=== PATIENT | male | born 1955 | race Caucasian/White ===

== ENCOUNTER 2017-03-16 20:22 | Inpatient (IN) | payer MEDICARE ==
[~2017-03-16] VITALS: Ht 170.2 cm; Wt 92.4 kg
[2017-03-16] VITALS (60 sets, daily range): BP systolic 117; BP diastolic 71; PULSE 106; TEMP 98.4; O2SAT 89–100
[~2017-03-16 20:22] MED LIST: CARBIDOPA & LEV1 TA1 PO; CEPHALEXIN500 M1 PO; COUMADIN 3MG3 MG/TAB PO; DESYREL 50MG50 MG PO; EC NAPROSYN500 MG PO; ESTRADIOL0.05 MG/24 TD; LIPITOR 40MG TA40 MG PO; LIPITOR20 MG PO; MAXITROL OPHTH D5 ML OP; NORCO 325 MG-51 TAB PO; PRAVASTATIN20 MG PO; SINEMET CR1 UDTAB.S1 PO; TOPROL XL 50MG50 MG PO; TOPROL XL50 MG PO; TRAZODO50 MG PO; ULTRAM 50MG TAB50 MG PO; VOLTAREN25 MG PO; ZYRTEC10 M1 PO
[2017-03-16] MEDS ORDERED: PRAVACHOL 40MG40 MG PO (20:38)
[2017-03-16 21:12] LABS: BASO % 0.5 % (0.0-2.0); EOS % 0.5 % (0-4.0); GRAN # 4.5 (1.4-6.5); GRAN % 71.6 % (42.2-75.2); HEMATOCRIT 38.5 % (42.0-52.0); HEMOGLOBIN 12.5 g/dl (13.5-18.0); LYMPH # 1.3 (1.2-3.4); LYMPH % 20.4 % (20.0-51.0); MEAN CELL VOLUME 93 fl (80.0-100.0); MEAN CORPUSCULAR HEMOGLOBIN 30 pg (27.0-31.0); MEAN CORPUSCULAR HGB CONC 33 g/dl (33.0-37.0); MEAN PLATELET VOLUME 10.1 fl (7.4-10.4); MONO # 0.4 (0.1-0.6); MONO % 6.7 % (1.7-9.3); PLATELET COUNT 221 K/mm3 (130-400); RED BLOOD COUNT 4.15 M/mm3 (4.20-5.60); REDCELL DISTRIBUTION WIDTH-CV 13.7 % (11.5-14.5); WHITE BLOOD COUNT 6.2 K/mm3 (4.8-10.8)
[2017-03-16] MEDS ORDERED: RITALIN10 MG PO (21:16)
[2017-03-16 21:21] LABS: PARTIAL THROMBOPLASTIN TIME 40.9 SECONDS (26.0-37.0)
[2017-03-16 21:22] LABS: ADJUSTED CALCIUM 9.2 mg/dL (8.4-10.2); ALBUMIN 3.7 gm/dL (3.5-5.0); BILIRUBIN,TOTAL 0.7 mg/dL (0.0-1.0); CREATININE, serum 1.07 mg/dL (0.66-1.25); POTASSIUM 4.6 mmol/L (3.4-5.0); TOTAL PROTEIN 6.9 gm/dL (6.4-8.2)
[2017-03-16 21:28] LABS: INR 4.3 (0.8-3.0)
[2017-03-16 21:33] LABS: PROTHROMBIN TIME 50.2 SECONDS (9.7-12.8)
[2017-03-17] VITALS (329 sets, daily range): BP systolic 94–142; BP diastolic 61–95; PULSE 90–122; TEMP 97–98.9; O2SAT 34–100
[2017-03-17] MEDS ORDERED: PRIL40 PO (02:31)
[2017-03-17 06:48] LABS: BASO % 0.5 % (0.0-2.0); EOS % 0.2 % (0-4.0); GRAN # 3.6 (1.4-6.5); GRAN % 66.4 % (42.2-75.2); LYMPH # 1.2 (1.2-3.4); LYMPH % 22.1 % (20.0-51.0); MEAN CELL VOLUME 94 fl (80.0-100.0); MEAN CORPUSCULAR HGB CONC 32 g/dl (33.0-37.0); MEAN PLATELET VOLUME 10.8 fl (7.4-10.4); MONO # 0.6 (0.1-0.6); MONO % 10.6 % (1.7-9.3); PLATELET COUNT 171 K/mm3 (130-400); REDCELL DISTRIBUTION WIDTH-CV 13.9 % (11.5-14.5); WHITE BLOOD COUNT 5.5 K/mm3 (4.8-10.8)
[2017-03-17 06:55] LABS: CALCIUM 8.5 mg/dL (8.4-10.2); CREATININE, serum 0.9 mg/dL (0.66-1.25); POTASSIUM 4.5 mmol/L (3.4-5.0)
[2017-03-17 07:00] LABS: HEMATOCRIT 27.2 % (42.0-52.0); HEMOGLOBIN 8.7 g/dl (13.5-18.0); MEAN CORPUSCULAR HEMOGLOBIN 30 pg (27.0-31.0)
[2017-03-17 07:51] LABS: INR 2.5 (0.8-3.0); PROTHROMBIN TIME 28.2 SECONDS (9.7-12.8)
[2017-03-17 11:47] LABS: HEMATOCRIT 21.3 % (42.0-52.0)
[2017-03-17 11:52] LABS: INR 1.8 (0.8-3.0); PROTHROMBIN TIME 20.4 SECONDS (9.7-12.8)
[2017-03-17 21:29] LABS: PH 5 (5-8); SQUAMOUS EPITHELIAL None Seen /hpf; URINE APPEARANCE Clear; URINE BACTERIA None Seen /hpf; URINE BILIRUBIN Negative (NEGATIVE); URINE BLOOD Negative (NEGATIVE); URINE COLOR Straw; URINE GLUCOSE Negative (NEGATIVE); URINE KETONE Trace (NEGATIVE); URINE RBC 0-2 /hpf; URINE UROBILINOGEN Negative (NEGATIVE); URINE WBC 0-2 /hpf
[2017-03-18] VITALS (8 sets, daily range): BP systolic 90–122; BP diastolic 55–77; PULSE 74–90; TEMP 97.8–98.9
[2017-03-18 01:47] LABS: HEMATOCRIT 25.6 % (42.0-52.0); HEMOGLOBIN 8.4 g/dl (13.5-18.0)
[2017-03-18 05:14] LABS: BASO % 0.8 % (0.0-2.0); EOS # 0.1 (0.0-0.7); EOS % 1.1 % (0-4.0); GRAN # 3.4 (1.4-6.5); GRAN % 64.5 % (42.2-75.2); LYMPH # 1.3 (1.2-3.4); MEAN CELL VOLUME 90 fl (80.0-100.0); MEAN CORPUSCULAR HGB CONC 34 g/dl (33.0-37.0); MEAN PLATELET VOLUME 10.3 fl (7.4-10.4); MONO # 0.5 (0.1-0.6); PLATELET COUNT 134 K/mm3 (130-400); RED BLOOD COUNT 2.65 M/mm3 (4.20-5.60); REDCELL DISTRIBUTION WIDTH-CV 14.8 % (11.5-14.5); WHITE BLOOD COUNT 5.3 K/mm3 (4.8-10.8)
[2017-03-18 05:17] LABS: HEMATOCRIT 23.9 % (42.0-52.0); MEAN CORPUSCULAR HEMOGLOBIN 30 pg (27.0-31.0)
[2017-03-18 05:32] LABS: INR 1.8 (0.8-3.0); PROTHROMBIN TIME 20.8 SECONDS (9.7-12.8)
[2017-03-19 02:45] VITALS: BP 113/63; PULSE 97; TEMP 98.2
[2017-03-19 08:10] VITALS: BP 113/61; PULSE 76; TEMP 97.8
[2017-03-19 12:02] LABS: HEMATOCRIT 24.9 % (42.0-52.0); HEMOGLOBIN 8.3 g/dl (13.5-18.0)
[2017-03-19 12:14] VITALS: BP 144/69; PULSE 74; TEMP 98.5
[2017-03-19 12:25] LABS: INR 1.5 (0.8-3.0); PROTHROMBIN TIME 17.4 SECONDS (9.7-12.8)
[2017-03-19] MEDS ORDERED: CARAFATE 1GM1 G PO (12:35)
[2017-03-19] MEDS ORDERED: PROTONIX 40MG T40 MG PO (12:35)
== END 2017-03-19 15:51 | disposition home or self-care (01) | DRG 378 ==
LOC: COL.ER 20:22 → ICU 21:56 → MEDICAL 03-18 10:18
PROVIDERS: Emergency Medicine; Family Medicine; Internal Medicine Gastroenterology; Nurse Practitioner Family
PROC: 0W3P8ZZ Control Bleeding in Gastrointestinal Tract, Via Natural or Artificial Opening Endoscopic (ICD-10-PCS; principal; 2017-03-17 12:00)
DX: K25.4 Chronic or unspecified gastric ulcer with hemorrhage (principal); D62 Acute posthemorrhagic anemia; G20 Parkinson's disease; E11.9 Type 2 diabetes mellitus without complications; I10 Essential (primary) hypertension; R13.12 Dysphagia, oropharyngeal phase; Z96.89 Presence of other specified functional implants; Z86.711 Personal history of pulmonary embolism; Z87.891 Personal history of nicotine dependence; Z86.718 Personal history of other venous thrombosis and embolism; Z79.01 Long term (current) use of anticoagulants; Z95.5 Presence of coronary angioplasty implant and graft
CPT/HCPCS: 99223-AI; 99232-AI; 99239; C9113; J2704; J3010; J7030; P9016

== ENCOUNTER 2017-09-18 14:46 | Outpatient (RCR) | payer MEDICARE ==
[~2017-09-18 14:46] MED LIST changes: +CARAFATE 1GM1 G PO; +PRAVACHOL 40MG40 MG PO; +PRIL40 PO; +PROTONIX 40MG T40 MG PO; +RITALIN10 MG PO
== END 2017-12-17 | disposition home or self-care (01) ==
LOC: WSST
DX: R05 Cough (principal); G20 Parkinson's disease
CPT/HCPCS: G8996-GN; G8997-GN

== ENCOUNTER → 2017-09-21 | Outpatient (CLI) | payer MEDICARE | LOC: COL.RAD 15:02 | DX: R05 Cough (principal); G20 Parkinson's disease ==

== ENCOUNTER → 2018-01-01 | Outpatient (CLI) | payer MEDICARE | LOC: COL.RAD 14:47 | DX: I77.810 Thoracic aortic ectasia (principal); Z96.89 Presence of other specified functional implants ==

== ENCOUNTER 2018-09-18 21:44 | Observation (INO) | payer MEDICARE, BC ==
[~2018-09-18] VITALS: Ht 165.1 cm; Wt 82.0 kg
[2018-09-18 22:56] LABS: BASO % 0.5 % (0.0-2.0); EOS # 0.2 (0.0-0.7); EOS % 2.8 % (0-4.0); GRAN # 5.4 (1.4-6.5); GRAN % 71.1 % (42.2-75.2); HEMOGLOBIN 16.6 g/dl (13.5-18.0); LYMPH # 1.3 (1.2-3.4); LYMPH % 17.3 % (20.0-51.0); MEAN CELL VOLUME 92 fl (80.0-100.0); MEAN CORPUSCULAR HEMOGLOBIN 31 pg (27.0-31.0); MEAN CORPUSCULAR HGB CONC 33 g/dl (33.0-37.0); MEAN PLATELET VOLUME 10.1 fl (7.4-10.4); MONO # 0.6 (0.1-0.6); PLATELET COUNT 205 K/mm3 (130-400); RED BLOOD COUNT 5.43 M/mm3 (4.20-5.60); REDCELL DISTRIBUTION WIDTH-CV 13.2 % (11.5-14.5)
[2018-09-18 23:07] LABS: INR 3.6 (0.8-3.0); PROTHROMBIN TIME 41.4 SECONDS (9.7-12.8)
[2018-09-18 23:10] LABS: ALANINE AMINOTRANSFERASE < 6 U/L (21-72); ALBUMIN 3.9 gm/dL (3.5-5.0); ALKALINE PHOSPHATASE 69 U/L (50-136); ANION GAP 6 mmol/L (7-16); AST,SGOT 20 U/L (15-37); BILIRUBIN,TOTAL 0.6 mg/dL (0.0-1.0); BLOOD UREA NITROGEN 24 mg/dL (9-20); CALCIUM 9.3 mg/dL (8.4-10.2); CARBON DIOXIDE 28 mmol/L (22-30); CHLORIDE 104 mmol/L (98-107); CREATININE, serum 1.29 mg/dL (0.66-1.25); GLUCOSE 102 mg/dL (74-106); POTASSIUM 4.7 mmol/L (3.4-5.0); SODIUM 138 mmol/L (137-145); TOTAL PROTEIN 7.9 gm/dL (6.4-8.2)
[2018-09-18] MEDS ORDERED: PULMICORT0.25 MG/2 IH (23:32)
[2018-09-18] MEDS ORDERED: BROVANA15 MCG/2 M IH (23:32)
[2018-09-18] MEDS ORDERED: COUMADIN 3MG3 MG/TAB PO (23:36)
--- NOTE | 2018-09-19 02:33 | NUR ---
Pt. arrived to the floor via stretcher. Pt. assisted to the bed with 2 assist pivot transfer. Pt. is A&OX3, assessment complete. INT to lt. ac patent. Pt. reports pain to lt. knee at a 5 at this time. Mepiles to lt. buttock, stage II pressure ulcer noted. Pt. has belkys wrap to lt. knee and coban dressing to rt. knee. Pt. denies further needs at this time. Call light within reach.
[2018-09-19 02:41] VITALS: BP 131/75; PULSE 82; TEMP 98.8
--- NOTE | 2018-09-19 06:05 | NUR ---
Pt. laying in bed with eyes closed, respirations equal and unlabored. Pt. does not appear to be in pain. Pt. not aroused at this time. Call light within reach.
--- NOTE | 2018-09-19 07:05 | NUR ---
Report from Sidney CARMONA.
[2018-09-19 07:50] VITALS: BP 139/84; PULSE 75; TEMP 98.2
--- NOTE | 2018-09-19 09:36 | NUR ---
PT RESTING IN BED. EATIN AND DRINKING WITH NO REPORTS OF N/V. PT HAS PARKINSONS. ROUNDING TEAM HAS NOT SEEN PATIENT YET THIS AM.
[2018-09-19 12:55] VITALS: BP 156/98; PULSE 77; TEMP 98.4
--- NOTE | 2018-09-19 13:15 | NUR ---
PATRICK student met with patient and patient's Mckayla to discuss discharge plan. Also present was patient's son. The patient lives with his , Mckayla, in [place]. The patient uses a walker to ambulate and needs help with dressing and shaving. The patient's says she has been able to help with these tasks so far, but states that it is getting harder as his Parkinson's progresses. The patient's PCP is Dr. Lenny Call and he uses the [facility]. The patient does not have a DPOA-HC completed but the patient and patient's were interested in obtaining the form to look over and complete later. The patient does not receive any home health services at this time but the patient and would be open to looking into HH if that is recommended by doctor or PT. The patient's states that they have started the process to get a Wheelchair through Medicare and Dr. Hilliard office is sending the paperwork to insurance but it's taking longer than expected. The patient has been using [facility] and would like to remain with [facility]. PATRICK to continue to follow.
--- NOTE | 2018-09-19 14:37 | NUR ---
PT SLEEPING IN RECLINER. OFFERS OF PAIN MEDICATIONS REFUSED THIS SHIFT.
[2018-09-19 15:56] VITALS: BP 140/49; PULSE 95; TEMP 98
--- NOTE | 2018-09-19 16:08 | NUR ---
PATRICK grajeda met with patient and patient's family to discuss hospitalist recommendation of home health with PT/OT/skilled/wound care. Patient and family were agreeable. PATRICK grajeda presented list of home health agencies from Medicare[employer]gov that serve the [facility]. Patient and Patient's chose [facility]. PATRICK grajeda contacted [facility] and faxed referral. Patient completed and signed DPOA-HC and designated his (Mckayla). PATRICK grajeda and PATRICK witnessed. PATRICK grajeda placed copy in the patient's chart and provided original +3 copies to patient. Patient is to discharge back home today, 09/19, with his and home health services from [facility]. No further needs at this time.
--- NOTE | 2018-09-19 16:57 | NUR ---
discharge instructions reviewed with pt and family questions answered, pt taken by wheel chair to front.
== END 2018-09-19 16:58 | disposition home or self-care (01) ==
LOC: COL.ER 21:44 → SURG 09-19 01:36
PROVIDERS: Nurse Practitioner; ADMIT Family Medicine
DX: M25.562 Pain in left knee (principal); M25.561 Pain in right knee; M25.462 Effusion, left knee; S80.02XA Contusion of left knee, initial encounter; S80.01XA Contusion of right knee, initial encounter; W01.0XXA Fall on same level from slipping, tripping and stumbling without subsequent striking against object, initial encounter; E11.9 Type 2 diabetes mellitus without complications; Z86.718 Personal history of other venous thrombosis and embolism; Z79.01 Long term (current) use of anticoagulants; Z86.711 Personal history of pulmonary embolism; N17.9 Acute kidney failure, unspecified; L89.319 Pressure ulcer of right buttock, unspecified stage; I25.10 Atherosclerotic heart disease of native coronary artery without angina pectoris; I10 Essential (primary) hypertension; E78.5 Hyperlipidemia, unspecified; G20 Parkinson's disease; Z87.19 Personal history of other diseases of the digestive system; Z97.8 Presence of other specified devices; Z87.891 Personal history of nicotine dependence; R79.1 Abnormal coagulation profile
CPT/HCPCS: J2270

== ENCOUNTER → 2019-04-17 | Outpatient (CLI) | payer MEDICARE, BC ==
[~2019-04-17] MED LIST changes: +BROVANA15 MCG/2 M IH; +PULMICORT0.25 MG/2 IH
== END ==
LOC: MHCPAIN 14:16
DX: G89.29 Other chronic pain (principal); M79.2 Neuralgia and neuritis, unspecified
CPT/HCPCS: G0463

== ENCOUNTER → 2019-05-07 | Outpatient (CLI) | payer MEDICARE, BC | LOC: MHCPAIN 14:19 | DX: G24.3 Spasmodic torticollis (principal) ==

== ENCOUNTER → 2019-09-11 | Outpatient (CLI) | payer MEDICARE, BC | LOC: MHCPAIN 13:49 | DX: G89.29 Other chronic pain (principal); G24.3 Spasmodic torticollis; J44.9 Chronic obstructive pulmonary disease, unspecified; G20 Parkinson's disease | CPT/HCPCS: G0463 ==

== ENCOUNTER → 2019-12-09 | Outpatient (CLI) | payer MEDICARE, BC | LOC: COL.RAD 10:59 | DX: N28.1 Cyst of kidney, acquired (principal); M51.36 Other intervertebral disc degeneration, lumbar region; M47.816 Spondylosis without myelopathy or radiculopathy, lumbar region; M48.05 Spinal stenosis, thoracolumbar region ==

== ENCOUNTER 2020-07-01 07:55 | Outpatient (RCR) | payer MEDICARE, BC ==
[2006-02-07 13:24] VITALS: BP 144/93
[2020-07-01] VITALS (9 sets, daily range): BP systolic 102–138; BP diastolic 62–86; PULSE 66–76; TEMP 98.1–99.3
[~2020-07-01] VITALS: Ht 165.1 cm; Wt 81.0 kg
[2020-07-01] MEDS ORDERED: COUMADIN 3MG3 MG/TAB PO (10:18)
[2020-07-01] MEDS ORDERED: REQUIP 1MG T1 MG/TAB PO (10:19)
--- NOTE | 2020-07-01 14:22 | NUR ---
PT has tolerated blood transfusions well. He has made several trips to bathroom via wheelchair, he is able to transfer with 0-1 person assist. Pt did eat lunch and was able to feed himself with no problem. pt did cough and clear throat while eating which pt states is his norm. Pt has remained pwd with reg and unlabored resps throughout. flushing line at this time. will dc iv and call when line is clear.
== END 2020-07-01 15:04 | disposition home or self-care (01) ==
LOC: EUO 07:55
DX: I95.1 Orthostatic hypotension (principal); D50.9 Iron deficiency anemia, unspecified; R41.82 Altered mental status, unspecified
CPT/HCPCS: J7050; P9016

== ENCOUNTER 2020-09-17 09:59 | Outpatient (RCR) | payer MEDICARE, BC ==
[~2020-09-17 09:59] MED LIST changes: +REQUIP 1MG T1 MG/TAB PO
== END 2020-12-16 | disposition home or self-care (01) ==
LOC: WSST
DX: R13.11 Dysphagia, oral phase (principal); G20 Parkinson's disease; R05 Cough

== ENCOUNTER → 2020-09-24 | Outpatient (CLI) | payer MEDICARE, BC ==
[~2020-09-24] MED LIST changes: +PREDNISONE20 MG PO
== END ==
LOC: COL.RAD 13:52
DX: G20 Parkinson's disease (principal); R05 Cough

== ENCOUNTER 2021-05-13 14:42 | Emergency (ER) | payer MEDICARE, BC ==
[~2021-05-13] VITALS: Ht 167.6 cm; Wt 79.5 kg
[~2021-05-13 14:42] MED LIST changes: -PREDNISONE20 MG PO
[2021-05-13 16:57] LABS: BASO # 0.1 K/mm3 (0.0-0.2); BASO % 0.9 % (0.0-2.0); EOS # 0.7 K/mm3 (0.0-0.7); EOS % 12.8 % (0-4.0); GRAN # 2.6 K/mm3 (1.4-6.5); GRAN % 47.3 % (42.2-75.2); HEMATOCRIT 40.4 % (42.0-52.0); HEMOGLOBIN 12.6 g/dl (13.5-18.0); LYMPH # 1.7 K/mm3 (1.2-3.4); LYMPH % 30.4 % (20.0-51.0); MEAN CELL VOLUME 93 fl (80.0-100.0); MEAN CORPUSCULAR HEMOGLOBIN 29 pg (27.0-31.0); MEAN CORPUSCULAR HGB CONC 31 g/dl (33.0-37.0); MEAN PLATELET VOLUME 9.5 fl (7.4-10.4); MONO # 0.5 K/mm3 (0.1-0.6); MONO % 8.4 % (1.7-9.3); PLATELET COUNT 331 K/mm3 (130-400); RED BLOOD COUNT 4.33 M/mm3 (4.20-5.60); REDCELL DISTRIBUTION WIDTH-CV 17.7 % (11.5-14.5)
[2021-05-13 17:08] LABS: INR 2.7 (0.8-3.0); PROTHROMBIN TIME 30.5 SECONDS (9.7-12.8)
[2021-05-13 17:14] LABS: ALBUMIN 2.7 gm/dL (3.4-4.8); ALKALINE PHOSPHATASE 91 U/L (40-150); ANION GAP 7 mmol/L (7-16); AST,SGOT 14 U/L (5-34); BILIRUBIN,TOTAL 0.4 mg/dL (0.2-1.2); BLOOD UREA NITROGEN 20 mg/dL (8-26); C-REACTIVE PROTEIN 0.33 mg/dL (0.00-0.50); CALCIUM 7.9 mg/dL (8.4-10.2); CARBON DIOXIDE 22 mmol/L (23-31); CHLORIDE 111 mmol/L (98-107); CREATININE, serum 0.85 mg/dL (0.72-1.25); GLUCOSE 112 mg/dL (70-99); POTASSIUM 4.9 mmol/L (3.5-4.5); SODIUM 140 mmol/L (136-145)
[2021-05-13 17:16] LABS: ALANINE AMINOTRANSFERASE < 6 U/L (0-55)
[2021-05-13 17:20] LABS: TROPONIN-I < 0.010 ng/mL (0.00-0.033)
[2021-05-13] MEDS ORDERED: PREDNISONE20 MG PO (18:26)
[2021-05-13 19:35] VITALS: BP 112/64; PULSE 84; TEMP 98.2
== END 2021-05-13 19:35 | disposition home or self-care (01) ==
LOC: COL.ER 14:42
PROVIDERS: Nurse Practitioner
DX: J44.1 Chronic obstructive pulmonary disease with (acute) exacerbation (principal); R53.81 Other malaise; G20 Parkinson's disease; I10 Essential (primary) hypertension; E11.9 Type 2 diabetes mellitus without complications; I25.10 Atherosclerotic heart disease of native coronary artery without angina pectoris; Z20.822 Contact with and (suspected) exposure to COVID-19; Z87.891 Personal history of nicotine dependence; Z79.899 Other long term (current) drug therapy; Z79.51 Long term (current) use of inhaled steroids; Z79.01 Long term (current) use of anticoagulants
CPT/HCPCS: J7512

== ENCOUNTER 2022-01-19 13:02 | Inpatient (IN) | payer MEDICARE, BC ==
[~2022-01-19] VITALS: Ht 167.6 cm; Wt 73.8 kg
[~2022-01-19 13:02] MED LIST changes: +PREDNISONE20 MG PO
[2022-01-19 14:02] LABS: BASO # 0.1 K/mm3 (0.0-0.2); EOS # 0.2 K/mm3 (0.0-0.7); EOS % 2.6 % (0.0-4.0); GRAN # 4.2 K/mm3 (1.4-6.5); GRAN % 67.9 % (42.2-75.2); HEMOGLOBIN 10.3 g/dl (13.5-18.0); LYMPH # 1.4 K/mm3 (1.2-3.4); LYMPH % 22.4 % (20.0-51.0); MEAN CELL VOLUME 92 fl (80.0-100.0); MEAN CORPUSCULAR HEMOGLOBIN 27 pg (27-31); MEAN CORPUSCULAR HGB CONC 30 g/dl (33.0-37.0); MEAN PLATELET VOLUME 9.3 fl (7.4-10.4); MONO # 0.3 K/mm3 (0.1-0.6); MONO % 5.6 % (1.7-9.3); PLATELET COUNT 292 K/mm3 (130-400); RED BLOOD COUNT 3.76 M/mm3 (4.20-5.60); REDCELL DISTRIBUTION WIDTH-CV 23.4 % (11.5-14.5)
[2022-01-19 14:05] LABS: HEMATOCRIT 34.4 % (42.0-52.0)
[2022-01-19 14:10] LABS: INR 1.9 (0.8-3.0)
[2022-01-19 14:20] LABS: ALBUMIN 2.6 gm/dL (3.4-4.8); ALKALINE PHOSPHATASE 70 U/L (40-150); ANION GAP 8 mmol/L (7-16); AST,SGOT 14 U/L (5-34); BILIRUBIN,TOTAL 0.4 mg/dL (0.2-1.2); BLOOD UREA NITROGEN 19 mg/dL (8-26); CALCIUM 7.9 mg/dL (8.4-10.2); CARBON DIOXIDE 19 mmol/L (23-31); CHLORIDE 113 mmol/L (98-107); CREATININE, serum 0.75 mg/dL (0.72-1.25); GLUCOSE 106 mg/dL (70-99); POTASSIUM 4.6 mmol/L (3.5-4.5); SODIUM 140 mmol/L (136-145); TOTAL PROTEIN 5.5 gm/dL (6.2-8.1)
[2022-01-19 14:35] LABS: ALANINE AMINOTRANSFERASE < 6 U/L (0-55)
[2022-01-19] MEDS ORDERED: PROAMATINE2.5 MG (15:06)
[2022-01-19] MEDS ORDERED: SINGULAIR 110 MG/TAB (15:07)
[2022-01-19] MEDS ORDERED: NITROSTAT0.4 MG/TAB (15:08)
[2022-01-19] MEDS ORDERED: LEVOXYL0.075 MG (15:10)
--- NOTE | 2022-01-19 16:32 | NUR ---
PATRICK met with patient's to discuss AD and DNR status. Mckayla states that she wants the patient to be a full code but NOT INTUBATED. Patient does not have a DPOA-HC established. Ed physician informed. Mckayla is the patient's primary caregiver. He has end stage parkinsons disease, lymphedema, hard of hearing and pressure sores on his bottom. Mckayla has to help the patient with all of his ADL's but he is normally able to ambulate with a FWW. Patient is unable to get up out of a chair at baseline and has 2 electric lift chairs at home. He has no home oxygen needs. Does have HH services from [facility] to help with nursing care. Patient was set to get hearing aids tomorrow. Spoke with Mckayla about surgery which she is agreeable to. Educated her about the process and the need for SNF therapy after. Her preferred choice would be [facility] and [facility] second.
[2022-01-19 18:12] VITALS: BP 153/82; PULSE 89; TEMP 98.6
[2022-01-19 19:18] VITALS: BP 141/79; PULSE 92; TEMP 99.1
[2022-01-19 21:56] LABS: COLLECTION METHOD CATHETER
[2022-01-19 22:03] LABS: MUCOUS Present (NOT PRESENT); PH 5 (5-8); SQUAMOUS EPITHELIAL 0-2 /hpf (0-10); URINE APPEARANCE Hazy (CLEAR/HAZY); URINE BACTERIA Rare /hpf (NONE SEEN); URINE BLOOD 3+ (NEGATIVE); URINE COLOR Yellow (YELLOW); URINE GLUCOSE Negative (NEGATIVE); URINE KETONE 1+ (NEGATIVE); URINE NITRATE Negative (NEGATIVE); URINE PROTEIN(semi-quant) 1+ (NEGATIVE); URINE RBC >50 /hpf (0-2); URINE UROBILINOGEN Negative (NEGATIVE)
[2022-01-19 23:43] VITALS: BP 121/68; PULSE 79; TEMP 99.2
[2022-01-20] VITALS (22 sets, daily range): BP systolic 115–187; BP diastolic 57–91; PULSE 57–79; TEMP 98.7–99.3
[2022-01-20 05:57] LABS: BASO # 0.1 K/mm3 (0.0-0.2); BASO % 1.2 % (0.0-2.0); EOS # 0.1 K/mm3 (0.0-0.7); EOS % 1.4 % (0.0-4.0); GRAN # 2.9 K/mm3 (1.4-6.5); GRAN % 68.2 % (42.2-75.2); LYMPH # 0.8 K/mm3 (1.2-3.4); LYMPH % 18.4 % (20.0-51.0); MEAN CELL VOLUME 93 fl (80.0-100.0); MEAN CORPUSCULAR HGB CONC 30 g/dl (33.0-37.0); MEAN PLATELET VOLUME 9.6 fl (7.4-10.4); MONO # 0.4 K/mm3 (0.1-0.6); MONO % 10.3 % (1.7-9.3); PLATELET COUNT 268 K/mm3 (130-400); RED BLOOD COUNT 3.33 M/mm3 (4.20-5.60); REDCELL DISTRIBUTION WIDTH-CV 23.5 % (11.5-14.5)
[2022-01-20 05:59] LABS: HEMATOCRIT 30.9 % (42.0-52.0); HEMOGLOBIN 9.2 g/dl (13.5-18.0); MEAN CORPUSCULAR HEMOGLOBIN 28 pg (27-31)
[2022-01-20 06:07] LABS: INR 2.3 (0.8-3.0); PROTHROMBIN TIME 27.1 SECONDS (9.7-12.8)
[2022-01-20 06:18] LABS: CALCIUM 7.3 mg/dL (8.4-10.2); CREATININE, serum 0.74 mg/dL (0.72-1.25)
--- NOTE | 2022-01-20 07:31 | NUR ---
Pt has been resting quietly in bed most of this shift. Assessment and medication administration completed without difficulty. Pt has had no complaints of pain thus far. All other needs met at this time. Call light within reach.
--- NOTE | 2022-01-20 08:30 | NUR ---
Clinical referral for SNF faxed to [facility].
--- NOTE | 2022-01-20 10:23 | NUR ---
PATIENT ALERT AND ORIENTED. FEROZ CLINTON. HEARING AIDS AT HOME. PATIENT REPORTS PAIN 02/09. ASSESSMENT PERFORMED. AM MEDS ADMINISTERED. VANCE TO DD WITH GOOD OUTPUT. IV TO LEFT FOREARM WITH NS RUNNING AT 60ML/HOUR. CALL LIGHT WITHIN REACH.
[2022-01-20 14:45] LABS: INR 1.8 (0.8-3.0); PROTHROMBIN TIME 21.1 SECONDS (9.7-12.8)
--- NOTE | 2022-01-20 17:43 | NUR ---
PATIENT OFF OF FLOOR AROUND 1650 WITH [facility] INFUSING.
[2022-01-20 19:31] LABS: HEMATOCRIT 27.5 % (42.0-52.0); HEMOGLOBIN 8.3 g/dl (13.5-18.0)
[2022-01-20 19:37] LABS: PROTHROMBIN TIME 22.6 SECONDS (9.7-12.8)
[2022-01-21] VITALS (8 sets, daily range): BP systolic 82–136; BP diastolic 49–66; PULSE 55–75; TEMP 97.6–98.9
[2022-01-21 00:28] LABS: HEMATOCRIT 27.6 % (42.0-52.0); HEMOGLOBIN 8.3 g/dl (13.5-18.0)
[2022-01-21 06:18] LABS: BASO % 0.7 % (0.0-2.0); EOS # 0.1 K/mm3 (0.0-0.7); EOS % 2.1 % (0.0-4.0); GRAN # 3.1 K/mm3 (1.4-6.5); GRAN % 72.3 % (42.2-75.2); LYMPH # 0.6 K/mm3 (1.2-3.4); LYMPH % 15.1 % (20.0-51.0); MEAN CELL VOLUME 94 fl (80.0-100.0); MEAN CORPUSCULAR HGB CONC 30 g/dl (33.0-37.0); MEAN PLATELET VOLUME 9.4 fl (7.4-10.4); MONO # 0.4 K/mm3 (0.1-0.6); MONO % 9.6 % (1.7-9.3); PLATELET COUNT 216 K/mm3 (130-400); RED BLOOD COUNT 2.92 M/mm3 (4.20-5.60)
[2022-01-21 06:24] LABS: INR 2.3 (0.8-3.0); PROTHROMBIN TIME 26.6 SECONDS (9.7-12.8)
[2022-01-21 06:27] LABS: HEMATOCRIT 27.4 % (42.0-52.0); HEMOGLOBIN 8.1 g/dl (13.5-18.0); MEAN CORPUSCULAR HEMOGLOBIN 28 pg (27-31)
[2022-01-21 06:41] LABS: CALCIUM 7.4 mg/dL (8.4-10.2); CREATININE, serum 0.75 mg/dL (0.72-1.25); MAGNESIUM 2.1 mg/dL (1.6-2.6); POTASSIUM 3.6 mmol/L (3.5-4.5)
--- NOTE | 2022-01-21 10:21 | NUR ---
Several visit attempts; Forming Roll Operator left card letting Blaze know [facility] is available at our hospital. Nurse stated she would see that Krzysztof gets the card when he awakens.
--- NOTE | 2022-01-21 10:45 | NUR ---
PATRICK staffed with the ortho doctor, Dr. Ramos. The patient is going to be non-weight bearing for [address] Ramos filled out and signed the Break in Stay Letter. PATRICK notified and faxed updates to [facility] and [facility]. Roberto, at [facility], reports that he will reach out to the patient's to see is they are able t private pay, until his NWB status changes. He also inquired about how frequent his iron infusions are and if he has any upcoming appointments with his Parkinson's doctor. PATRICK contacted and updated the patient's , Mckayla, on the above. Mckayla reports that she is unsure if they can private pay and that she will have to figure it out today. She states that they did have home health services from [facility]. She states that the patient gets the iron infusions every three months and he does not have one coming up. She states that he does not have any appointments coming up either with his Parkinson's doctor. She is open to PATRICK sending a referral to [facility]. PATRICK contacted and faxed a referral to Kely at [facility]. Kely states that she will send the referral out to her team, but they cannot do weekend admissions, due to difficulties getting medications.
--- NOTE | 2022-01-21 14:02 | NUR ---
Deborah, at [facility], reports that they do not have room available and would have to decline the patient at this time.
--- NOTE | 2022-01-21 15:00 | NUR ---
PATIENT ALERT AND ORIENTED. NUNAM IQUA BILAT. PATIENT REPORTS PAIN 8/10 ON RIGHT HIP. IV TO LEFT FOREARM WITH LR RUNNING AT 100ML/HOUR. PATIENT REQUESTS PAIN MEDICATION. ASSESSMENT PERFORMED. AM MEDS ADMINISTERED. DRESSING TO RIGHT HIP WITH GAUZE AND FOAM TAPE. ICE PACK APPLIED. CALL LIGHT WITHIN REACH.
--- NOTE | 2022-01-21 16:27 | NUR ---
Kely, at [facility], reports that they should be able to take the patient on Monday, as long as he meets other admission criteria. They would like to know his COVID vaccine status and would need a copy of the vaccine card. PATRICK met with the patient's , Mckayla, to update. Mckayla reports that Roberto at [facility] contacted her and went over pricing. She states that she would like to pursue with and prefer that the patient going to [facility] and understands it would be private pay. She is in agreement with the patient discharging to [facility] tomorrow, if the patient is medically cleared. PATRICK followed up with Roberto at [facility]. Roberto reports that he never received the updates from the morning, so they have not clinically accepted him yet. PATRICK refaxed the updates to [facility]. Roberto reports that they have received them and his team is reviewing them.
--- NOTE | 2022-01-21 19:48 | NUR ---
TX GIVEN VIA MASK, TOLERATED WELL. PT ON ROOM AIR BEFORE AND AFTER TX.
--- NOTE | 2022-01-21 22:58 | NUR ---
PT LAYING IN BED RESTING QUIETLY. PT DENIES ANY PAIN AT THIS TIME.
[2022-01-22 03:30] VITALS: BP 129/64; PULSE 74; TEMP 97.5
[2022-01-22 07:06] LABS: BASO % 0.4 % (0.0-2.0); EOS # 0.2 K/mm3 (0.0-0.7); EOS % 3.2 % (0.0-4.0); GRAN # 3.4 K/mm3 (1.4-6.5); GRAN % 72.8 % (42.2-75.2); LYMPH # 0.7 K/mm3 (1.2-3.4); LYMPH % 15.3 % (20.0-51.0); MEAN CELL VOLUME 91 fl (80.0-100.0); MEAN CORPUSCULAR HGB CONC 30 g/dl (33.0-37.0); MONO # 0.4 K/mm3 (0.1-0.6); MONO % 8.1 % (1.7-9.3); PLATELET COUNT 231 K/mm3 (130-400); RED BLOOD COUNT 2.89 M/mm3 (4.20-5.60); REDCELL DISTRIBUTION WIDTH-CV 22.3 % (11.5-14.5)
[2022-01-22 07:11] LABS: HEMATOCRIT 26.3 % (42.0-52.0); MEAN CORPUSCULAR HEMOGLOBIN 28 pg (27-31)
[2022-01-22 07:19] LABS: INR 3.6 (0.8-3.0); PROTHROMBIN TIME 42.1 SECONDS (9.7-12.8)
[2022-01-22 07:22] LABS: PARTIAL THROMBOPLASTIN TIME 38.4 SECONDS (26.0-37.0)
[2022-01-22 07:31] LABS: CALCIUM 7.4 mg/dL (8.4-10.2); CREATININE, serum 0.61 mg/dL (0.72-1.25); POTASSIUM 4.2 mmol/L (3.5-4.5)
[2022-01-22 07:34] VITALS: BP 110/55; PULSE 74; TEMP 98.9
--- NOTE | 2022-01-22 08:23 | NUR ---
PT RESTING IN BED. HAD INCONTINENT DIARHERRA LG AMT. PREVIOUSLY HAD LG BM ON BED MOLINA. PT DENIES NEEDS AT THIS TIME.
--- NOTE | 2022-01-22 10:38 | NUR ---
Per Roberto at [facility], their clinical team was wondering if the patient would be discharged with the IV Zosyn. Arnold Mejia that it has been discontinued and clinical updates faxed to Roberto for review.
[2022-01-22 12:00] VITALS: BP 108/56; PULSE 70; TEMP 97.9
[2022-01-22] MEDS ORDERED: VITAMIN C500 MG PO (12:15)
[2022-01-22] MEDS ORDERED: TYLENOL 500MG500 MG PO (12:15)
[2022-01-22] MEDS ORDERED: SENEXON-S 50-81 EACH PO (12:15)
[2022-01-22] MEDS ORDERED: DULCOLAX S10 MG/SUPP RC (12:15)
[2022-01-22] MEDS ORDERED: OSCAL 500 TAB500 MG PO (12:15)
[2022-01-22] MEDS ORDERED: MULTI VITAMINS1 TAB PO (12:15)
[2022-01-22] MEDS ORDERED: ROXICODONE 55 MG/TAB PO (12:15)
[2022-01-22] MEDS ORDERED: AMOXICILLIN 8751 TAB PO (12:15)
[2022-01-22] MEDS ORDERED: SYNTHROID0.075 MG/T PO (12:15)
[2022-01-22] MEDS ORDERED: GOOD SENSE400 MG/5 M PO (12:15)
--- NOTE | 2022-01-22 12:28 | NUR ---
Roberto with [facility] notified this SW that they are able to accept this patient. Clinical updates and discharge orders faxed to oRberto. Transportatin time arranged for 1300. Clinical team and patient's notifed. All are in agreement with discharge plan.
[2022-01-22] MEDS ORDERED: COUMADIN 1MG1 MG/TAB PO (13:15)
--- NOTE | 2022-01-22 13:48 | NUR ---
CALLED REPORT TO VIA [facility]. PT LEFT UNIT IN WHEEL CHAIR WITH TRANSPORTATION FROM [facility].
== END 2022-01-22 13:51 | DRG 481 ==
LOC: COL.ER 13:02 → SURG 16:56
PROVIDERS: Nurse Anesthetist, Certified Registered; Nurse Practitioner Family; Orthopaedic Surgery; Physician Assistant; ADMIT Family Medicine
PROC: 0QS604Z Reposition Right Upper Femur with Internal Fixation Device, Open Approach (ICD-10-PCS; principal; 2022-01-20 17:00)
DX: S72.141A Displaced intertrochanteric fracture of right femur, initial encounter for closed fracture (principal); E87.2 Acidosis; G20 Parkinson's disease; W18.39XA Other fall on same level, initial encounter; J44.9 Chronic obstructive pulmonary disease, unspecified; I10 Essential (primary) hypertension; I25.10 Atherosclerotic heart disease of native coronary artery without angina pectoris; E03.9 Hypothyroidism, unspecified; D50.9 Iron deficiency anemia, unspecified; E78.5 Hyperlipidemia, unspecified; E11.9 Type 2 diabetes mellitus without complications; Z20.822 Contact with and (suspected) exposure to COVID-19; J32.4 Chronic pansinusitis; I95.1 Orthostatic hypotension; M62.81 Muscle weakness (generalized); Z87.19 Personal history of other diseases of the digestive system; Z86.718 Personal history of other venous thrombosis and embolism; Z79.01 Long term (current) use of anticoagulants; Z86.711 Personal history of pulmonary embolism; Z95.0 Presence of cardiac pacemaker; Z79.890 Hormone replacement therapy; Z87.891 Personal history of nicotine dependence; Y93.89 Activity, other specified; Y92.89 Other specified places as the place of occurrence of the external cause; Z79.4 Long term (current) use of insulin; Z23 Encounter for immunization
CPT/HCPCS: 99223-AI; 99233-AI; A4314; A9284; C1713; J0690; J1885; J2250; J2270; J2543; J2704; J2795; J3010; J7030; J7121

== ENCOUNTER → 2022-02-08 | Outpatient (CLI) | payer MEDICARE, BC ==
[~2022-02-08] MED LIST changes: +AMOXICILLIN 8751 TAB PO; +COUMADIN 1MG1 MG/TAB PO; +DULCOLAX S10 MG/SUPP RC; +GOOD SENSE400 MG/5 M PO; +LEVOXYL0.075 MG; +MULTI VITAMINS1 TAB PO; +NITROSTAT0.4 MG/TAB; +OSCAL 500 TAB500 MG PO; +PROAMATINE2.5 MG; +ROXICODONE 55 MG/TAB PO; +SENEXON-S 50-81 EACH PO; +SINGULAIR 110 MG/TAB; +SYNTHROID0.075 MG/T PO; +TYLENOL 500MG500 MG PO; +VITAMIN C500 MG PO
== END ==
LOC: COL.RAD 09:29
DX: S72.091A Other fracture of head and neck of right femur, initial encounter for closed fracture (principal); X58.XXXA Exposure to other specified factors, initial encounter

== ENCOUNTER → 2022-02-24 | Outpatient (CLI) | payer MEDICARE, BC | LOC: COL.RAD 09:06 | DX: S72.141D Displaced intertrochanteric fracture of right femur, subsequent encounter for closed fracture with routine healing (principal) ==

== ENCOUNTER → 2022-03-14 | Outpatient (CLI) | payer MEDICARE, BC | LOC: COL.RAD 14:00 | DX: S72.141D Displaced intertrochanteric fracture of right femur, subsequent encounter for closed fracture with routine healing (principal) ==